=== PATIENT | male | born 1990 | race American Indian/Alaskan Native ===

== ENCOUNTER 2020-02-04 04:39 | Emergency (ER) | payer SELFPAY ==
[2020-02-04] MEDS ORDERED: SODIUM CHLORIDE 0.9% 1000 ML 1,000 ML IV ONE (04:59)
[2020-02-04 05:26] LABS: Basophils % (Auto) 0.2 % (0.0-1.8); Eosinophils % (Auto) 0.3 % (0.0-4.3); Hematocrit 40.8 % (35.5-45.6); Hemoglobin 13.6 gm/dl (11.8-15.2); Lymphocytes # (Auto) 2.2 K/mm3 (1.2-5.4); Lymphocytes % (Auto) 16.2 % (13.4-35.0); Mean Corpuscular HGB Conc 33 % (32-34); Mean Corpuscular Volume 87 fl (84-94); Platelet Count 202 K/mm3 (140-440); Red Blood Count 4.68 M/mm3 (3.65-5.03); Red Cell Distribution Width 14.3 % (13.2-15.2)
[2020-02-04 05:46] LABS: BUN/Creatinine Ratio 9; Blood Urea Nitrogen 9 mg/dL (9-20); Calcium 8.8 mg/dL (8.4-10.2); Hemolysis Index 2
--- NOTE | 2020-02-04 06:28 | Emergency Department Report ---
ED General Adult HPI - General Chief complaint: Overdose Stated complaint: ETOH/COCAINE Time Seen by Provider: 02/04/20 06:23 Source: EMS Mode of arrival: Stretcher Limitations: Altered Mental Status - History of Present Illness Initial comments: Patient states he was drinking alcohol amount of taking some cocaine that he found an elevator. Patient states admitted on decision but I do not want to kill myself or hurt anybody else. Patient denies auditory or visual hallucinations. Patient has no complaints. -: Sudden Severity scale (0 -10): 0 Improves with: none Worsens with: none Associated Symptoms: denies other symptoms Treatments Prior to Arrival: none - Related Data Allergies Allergy/AdvReac Type Severity Reaction Status Date / Time Unable to Assess Allergy Unverified 02/04/20 04:58 ED Review of Systems ROS: Stated complaint: ETOH/COCAINE Other details as noted in HPI Comment: All other systems reviewed and negative Constitutional: denies: chills, fever Eyes: denies: eye pain, eye discharge, vision change ENT: denies: ear pain, throat pain Respiratory: denies: cough, shortness of breath, wheezing Cardiovascular: denies: chest pain, palpitations Endocrine: no symptoms reported Gastrointestinal: denies: abdominal pain, nausea, diarrhea Genitourinary: denies: urgency, dysuria Musculoskeletal: denies: back pain, joint swelling, arthralgia Skin: denies: rash, lesions Neurological: denies: headache, weakness, paresthesias Psychiatric: denies: anxiety, depression Hematological/Lymphatic: denies: easy bleeding, easy bruising ED Past Medical Hx - Past Medical History Previous Medical History?: Yes - Surgical History Past Surgical History?: No - Social History Smoking Status: Unknown if ever smoked Substance Use Type: Alcohol, Cocaine ED Physical Exam - General Limitations: Altered Mental Status General appearance: alert, in no apparent distress - Head Head exam: Present: atraumatic, normocephalic - Eye Eye exam: Present: normal appearance, PERRL, EOMI - ENT ENT exam: Present: mucous membranes moist - Neck Neck exam: Present: normal inspection - Respiratory Respiratory exam: Present: normal lung sounds bilaterally. Absent: respiratory distress - Cardiovascular Cardiovascular Exam: Present: regular rate, normal rhythm. Absent: systolic murmur, diastolic murmur, rubs, gallop - GI/Abdominal GI/Abdominal exam: Present: soft, normal bowel sounds. Absent: distended, tenderness - Rectal Rectal exam: Present: deferred - Extremities Exam Extremities exam: Present: normal inspection - Back Exam Back exam: Present: normal inspection - Neurological Exam Neurological exam: Present: alert, oriented X3, CN II-XII intact. Absent: motor sensory deficit - Psychiatric Psychiatric exam: Present: normal affect, normal mood - Skin Skin exam: Present: warm, dry, intact, normal color. Absent: rash ED Course Vital Signs 02/04/20 02/04/20 04:49 08:53 Temperature 97.9 F 97.5 F L Pulse Rate 64 74 Respiratory 12 18 Rate Blood Pressure 108/54 117/81 [Right] O2 Sat by Pulse 97 98 Oximetry ED Medical Decision Making - Lab Data Result diagrams: 02/04/20 05:11 02/04/20 05:11 Lab Results 02/04/20 02/04/20 02/04/20 Range/Units 05:11 05:11 05:11 WBC 13.8 H (4.5-11.0) K/mm3 RBC 4.68 (3.65-5.03) M/mm3 Hgb 13.6 (11.8-15.2) gm/dl Hct 40.8 (35.5-45.6) % MCV 87 (84-94) fl MCH 29 (28-32) pg MCHC 33 (32-34) % RDW 14.3 (13.2-15.2) % Plt Count 202 (140-440) K/mm3 Lymph % (Auto) 16.2 (13.4-35.0) % [place] % (Auto) 7.0 (0.0-7.3) % Eos % (Auto) 0.3 (0.0-4.3) % Baso % (Auto) 0.2 (0.0-1.8) % Lymph # 2.2 (1.2-5.4) K/mm3 [place] # 1.0 H (0.0-0.8) K/mm3 Eos # 0.0 (0.0-0.4) K/mm3 Baso # 0.0 (0.0-0.1) K/mm3 Seg Neutrophils % 76.3 H (40.0-70.0) % Seg Neutrophils # 10.6 H (1.8-7.7) K/mm3 Sodium 139 (137-145) mmol/L Potassium 3.3 L (3.6-5.0) mmol/L Chloride 101.4 (98-107) mmol/L Carbon Dioxide 21 L (22-30) mmol/L Anion Gap 20 mmol/L BUN 9 (9-20) mg/dL Creatinine 1.0 (0.8-1.5) mg/dL Estimated GFR > 60 ml/min BUN/Creatinine Ratio 9 % Glucose 156 H (75-100) mg/dL Calcium 8.8 (8.4-10.2) mg/dL Salicylates < 0.3 L (2.8-20.0) mg/dL Acetaminophen (10.0-30.0) ug/mL 02/04/20 Range/Units 05:11 WBC (4.5-11.0) K/mm3 RBC (3.65-5.03) M/mm3 Hgb (11.8-15.2) gm/dl Hct (35.5-45.6) % MCV (84-94) fl MCH (28-32) pg MCHC (32-34) % RDW (13.2-15.2) % Plt Count (140-440) K/mm3 Lymph % (Auto) (13.4-35.0) % [place] % (Auto) (0.0-7.3) % Eos % (Auto) (0.0-4.3) % Baso % (Auto) (0.0-1.8) % Lymph # (1.2-5.4) K/mm3 [place] # (0.0-0.8) K/mm3 Eos # (0.0-0.4) K/mm3 Baso # (0.0-0.1) K/mm3 Seg Neutrophils % (40.0-70.0) % Seg Neutrophils # (1.8-7.7) K/mm3 Sodium (137-145) mmol/L Potassium (3.6-5.0) mmol/L Chloride (98-107) mmol/L Carbon Dioxide (22-30) mmol/L Anion Gap mmol/L BUN (9-20) mg/dL Creatinine (0.8-1.5) mg/dL Estimated GFR ml/min BUN/Creatinine Ratio % Glucose (75-100) mg/dL Calcium (8.4-10.2) mg/dL Salicylates (2.8-20.0) mg/dL Acetaminophen < 5.0 L (10.0-30.0) ug/mL - Medical Decision Making Patient refused additional blood draw by lab Critical care attestation.: If time is entered above; I have spent that time in minutes in the direct care of this critically ill patient, excluding procedure time. ED Disposition Clinical Impression: ETOH abuse Disposition: DC-01 TO HOME OR SELFCARE Is pt being admited?: No Does the pt Need Aspirin: No Condition: Stable Instructions: Alcohol Intoxication (ED) Additional Instructions: return if worse Referrals: [facility],MD [Primary Care Provider] - 3-5 Days [facility] [Provider Group] - 3-5 Days [facility] [Provider Group] - 3-5 Days Time of Disposition: 10:54
--- NOTE | 2020-02-04 12:19 | Consultation ---
History of Present Illness - Reason for Consult Consult date: 02/04/20 Reason for consult: substance abuse - Chief Complaint Chief complaint: "doing too much of everything." - History of Present Psychiatric Illness The patient's medical record was reviewed and the patient's progress was discussed with the nursing staff. Eli Farr is a 29y/o male patient who states he was "doing too much of everything." He is a/o x 3. He is somewhat evasive. He keeps most of his face covered on and off during the interview. He seems irritable, but he cooperates with the interview. He makes poor eye contact. When asking the patient to elaborate on his reason for coming to the hospital, he replied, "I called 911 because I wasn't feeling good. I panicked. I was doing drugs and just too much of everything." The patient says "this was my first time doing drugs. I don't know what it was." He says "I did the drugs to hurt my parents." When asking about suicidal or homicidal thoughts, the patient states, "No. I'm a privileged kid. I just tried some dumb shit." The patient denies having any past suicidal attempts or any psychiatric admissions or history. He denies ever being on any psychiatric medications. When asked about his mood, Mr. Farr replies, "I feel good. I'm just dehydrated. I need some water." He denies hallucinations of any kind. The patient asked me if I could call his cellphone and see if brotherMichael would answer at [phone], and let him know he was here. I attempted to call the patient's brother but did not get an answer. After informing the patient, he gave me another number [phone], his mother, Natalia, and asked me to call her and "tell her I'm here. Don't tell her anything else." I called the patient's mother, she said "someone has already informed me of him being there." She then asks, "is he going to rehab." I informed the patient mother I could not give out any further information per the patient's request. I informed the patient of the phone call with his mother, he became upset and asked "do you know who talked to her. Why did she ask that." PAST PSYCHIATRIC HISTORY: Psych diagnoses: Denies Suicide attempts: Denies Hospital admits: Denies Psych meds tried: Denies Substance abuse: Yes, didnt report what the substance was Outpatient treatment: Denies PAST MEDICAL HISTORY: None reported Family Psychiatric History None reported SOCIAL HISTORY Marital Status: Single Living arrangement: with brother Highest level of education: College graduate Employment status: Employed History of abuse: Denies Legal history: Yes REVIEW OF SYSTEMS Constitutional: Negative for weight loss ENT: Negative for stridor Respiratory: Negative for cough or hemoptysis All other systems reviewed and are negative MSE Appearance: Dressed appropriately Behavior: Cooperative, somewhat evasive Mood: "I feel good" Affect: Congruent with stated mood Speech: Normal tone and pace Though process: Goal directed Thought content Suicidal thoughts: Denies Homicidal thoughts: Denies Hallucination: Denies Delusions: None elicited Cognition/Memory: Limited Judgment/Insight: Limited Diagnoses: Drug Induced Mood Disorder PLAN RECOMMENDATIONS Scripts: Depakote DR 125mg po BID Risks, benefits and alternatives of medications discussed with the patient, questions answered and consent obtained from patient. PSYCHOTHERAPY: Supportive psychotherapy provided MEDICAL: Per primary team DELIRIUM PRECAUTIONS: Please re-orient patient frequently, keep lights on during the day, and minimize benzodiazepines and opiates as these medications could worsen patient's confusion. RECRUITMENT OFFICER: Defer to primary DISPOSITION: The patient does meet the requirement for acute inpatient psychiatric hospitalization at this time. The patient may discharge home once m edically cleared. Mr. Farr is aware that if the thoughts of self harm or tendencies to harm others are to arise he is to seek immediate assistance including, but not limited to the suicide crisis hotline, 911 and/or ER. Mr Farr was advised to abstain from all illicit drugs and alcohol use. He is to follow up with outpatient psychiatry or primary in 7 to 14 days. Assessors to give him resources for outpatient psychiatry cognitive behavioral therapy, and drug rehabilitation resources if needed. The patient was explained the treatment plan, including effectiveness and side effects of medications. He verbalizes agreement and understanding of the treatment plan. Will sign off. Please call with any questions or concerns. Thank you for this consult. Medications and Allergies Allergies Allergy/AdvReac Type Severity Reaction Status Date / Time Unable to Assess Allergy Unverified 02/04/20 04:58 Home Medications Medication Instructions Recorded Confirmed Last Taken Type Divalproex Dr [DepaKOTE DR] 125 mg PO BID #60 tablet 02/04/20 Unknown Rx Mental Status Exam - Vital signs Last Vital Signs Temp 97.5 F L 02/04/20 08:53 Pulse 74 02/04/20 08:53 Resp 18 02/04/20 08:53 BP 117/81 02/04/20 08:53 Pulse Ox 98 02/04/20 08:53 Results Result Diagrams: 02/04/20 05:11 02/04/20 05:11 Abnormal lab results 02/04/20 02/04/20 02/04/20 Range/Units 05:11 05:11 05:11 WBC 13.8 H (4.5-11.0) K/mm3 [place] # 1.0 H (0.0-0.8) K/mm3 Seg Neutrophils % 76.3 H (40.0-70.0) % Seg Neutrophils # 10.6 H (1.8-7.7) K/mm3 Potassium 3.3 L (3.6-5.0) mmol/L Carbon Dioxide 21 L (22-30) mmol/L Glucose 156 H (75-100) mg/dL Salicylates < 0.3 L (2.8-20.0) mg/dL Acetaminophen (10.0-30.0) ug/mL Plasma/Serum Alcohol (0-0.07) % 02/04/20 02/04/20 Range/Units 05:11 10:22 WBC (4.5-11.0) K/mm3 [place] # (0.0-0.8) K/mm3 Seg Neutrophils % (40.0-70.0) % Seg Neutrophils # (1.8-7.7) K/mm3 Potassium (3.6-5.0) mmol/L Carbon Dioxide (22-30) mmol/L Glucose (75-100) mg/dL Salicylates (2.8-20.0) mg/dL Acetaminophen < 5.0 L (10.0-30.0) ug/mL Plasma/Serum Alcohol 0.10 H (0-0.07) % All other labs normal.
[2020-02-04 12:20] VITALS: BP 115/69
== END 2020-02-04 12:21 | disposition home or self-care (01) ==
LOC: ED 04:39
DX: F10.10 Alcohol abuse, uncomplicated (principal); F14.90 Cocaine use, unspecified, uncomplicated
CPT/HCPCS: 36415; 80048; 85025; 99284; J7030; 80320; G0480